=== PATIENT | male | born 1945 | race Caucasian/White ===

== ENCOUNTER 2016-06-11 10:58 | Outpatient (CLI) | payer MEDICARE, OTHER | END 2016-06-11 10:59 | disposition home or self-care (01) | DX: I25.10 Atherosclerotic heart disease of native coronary artery without angina pectoris (principal); E11.9 Type 2 diabetes mellitus without complications; Z79.899 Other long term (current) drug therapy; J18.9 Pneumonia, unspecified organism ==

== ENCOUNTER 2016-11-17 13:57 | Outpatient (CLI) | payer OTHER, MEDICARE | END 2016-11-17 13:58 | disposition critical access hospital (66) | LOC: EMS 13:57 | PROVIDERS: ATTEND Surgery | DX: R07.9 Chest pain, unspecified (principal); V59.40XA Driver of pick-up truck or van injured in collision with unspecified motor vehicles in traffic accident, initial encounter; Y92.410 Unspecified street and highway as the place of occurrence of the external cause | CPT/HCPCS: A0425; A0427 ==

== ENCOUNTER 2016-11-17 14:20 | Emergency (ER) | payer OTHER, MEDICARE ==
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
--- NOTE | 2016-11-17 16:15 | XRAY Preliminary Report ---
Exam: XR Cervical Spine 2 View IMPRESSION: 1. No acute bony abnormalities identified. 2. Anterior fusion, C4-C6, and posterior fusion, C2-T1, with chronic fracture of the right pedicle sc rew at T1. [facility] SITE ID: [id number]
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
[2016-11-17 16:32] VITALS: BP 123/84
== END 2016-11-17 16:45 | disposition home or self-care (01) ==
LOC: MERGE 14:20 → ED 14:20
DX: S16.1XXA Strain of muscle, fascia and tendon at neck level, initial encounter (principal); V53.5XXA Driver of pick-up truck or van injured in collision with car, pick-up truck or van in traffic accident, initial encounter; Y92.488 Other paved roadways as the place of occurrence of the external cause; Z98.1 Arthrodesis status; I45.2 Bifascicular block; R94.31 Abnormal electrocardiogram [ECG] [EKG]; I10 Essential (primary) hypertension; E78.00 Pure hypercholesterolemia, unspecified; E11.9 Type 2 diabetes mellitus without complications; Z79.4 Long term (current) use of insulin; Z79.84 Long term (current) use of oral hypoglycemic drugs
CPT/HCPCS: 72040; 93005; 99283; 99284

== ENCOUNTER 2016-11-30 20:11 | Emergency (ER) | payer OTHER, MEDICARE ==
[2016-11-30] MEDS ORDERED: LORazepam 2 MG/ML SYRINGE IVP STA (23:07)
[2016-11-30] MEDS ORDERED: LORazepam 2 MG/ML SYRINGE ONE (23:09)
[2016-11-30] MEDS ORDERED: IOPAMIDOL-300 100 ML VIAL IVP ONE (23:20)
== END 2016-12-01 01:08 | disposition home or self-care (01) ==
DX: E11.65 Type 2 diabetes mellitus with hyperglycemia (principal); R07.9 Chest pain, unspecified; I25.2 Old myocardial infarction; I25.10 Atherosclerotic heart disease of native coronary artery without angina pectoris; I45.2 Bifascicular block; I10 Essential (primary) hypertension; Z79.4 Long term (current) use of insulin; Z95.5 Presence of coronary angioplasty implant and graft
CPT/HCPCS: 36415; 71260; 80048; 84484; 85025; 93005; 96374; 99283; 99284; J2060; Q9967

== ENCOUNTER 2016-12-12 09:39 | Outpatient (CLI) | payer MEDICARE, OTHER ==
--- NOTE | 2016-12-12 18:48 | CT Report ---
EXAM: CT SOFT TISSUE NECK WITHOUT CONTRAST EXAM DATE: 12/12/2016 10:45 AM. HISTORY: 71-year-old man with neck mass (location unspecified) and costochondritis. COMPARISONS: None. TECHNIQUE: Routine soft tissue neck CT protocol. IV contrast: None. Reconstructions: Coronal and sagi ttal. In accordance with CT protocol optimization, one or more of the following dose reduction techniques w ere utilized for this exam: automated exposure control, adjustment of mA and/or KV based on patient s ize, or use of iterative reconstructive technique. FINDINGS: Visualized Intracranial Contents: Unremarkable. Orbits: Unremarkable. Sinuses: Mucosal thickening is present throughout the Patty the paranasal sinuses. Hyperdense contents are present in the maxillary sinuses bilaterally, likely inspissated secretions. Pharynx and Oral Cavity: Streak artifact from posterior fusion hardware and dental amalgam partially limited evaluation. Visualized parapharyngeal and retropharyngeal spaces are symmetric without mass l esion. Base of tongue and floor of mouth are symmetric without mass lesion. Pharyngeal airway is wide ly patent. Larynx: Symmetric without mass lesion. True vocal cords are symmetric. Airway is widely patent. Parotid and Submandibular Glands: Normal. Lymph Nodes and Soft Tissues: No cervical or supraclavicular lymphadenopathy is present. Soft tissues are unremarkable except for a patchy area of scattered density in the fat of the left posterior neck triangle (image 54, series 6, most likely reflecting local inflammatory reaction. This measures appr oximately 3.2 x 1.8 cm in maximum axial dimensions, but margins are ill-defined. Otherwise, no mass l esion or abnormal enhancement. Thyroid: Normal. Lung Apices: Clear. Bones: No acute fracture or malalignment. Status post posterior fusion of C2-T1 and anterior fusion o f C4-C6. There is also been posterior decompression with laminectomies at C4 and C6. IMPRESSION: 1. Small region of scattered density in the left neck posterior triangle subcutaneous fat, most consi stent with local inflammatory reaction/edema. Otherwise, no evidence of mass lesion in the neck soft tissues. 2. Status post posterior cervical fusion of C2-T1 and anterior fusion of C4-C6 as well as posterior d ecompression with laminectomies at C4 and C6. 3. Sinusitis, likely chronic. [facility] Referring Provider Line: [phone] SITE ID: [id number]
== END 2016-12-12 09:40 | disposition home or self-care (01) ==
LOC: DI 09:39
PROVIDERS: ATTEND Family Medicine
DX: R22.1 Localized swelling, mass and lump, neck (principal); Z98.1 Arthrodesis status; J32.9 Chronic sinusitis, unspecified
CPT/HCPCS: 70490

== ENCOUNTER 2017-02-14 11:41 | Emergency (ER) | payer MEDICARE, OTHER ==
[2017-02-14 11:51] VITALS: BP 118/76
--- NOTE | 2017-02-14 13:09 | XRAY Preliminary Report ---
Exam: XR Knee 4 View RT IMPRESSION: 1. Prepatellar soft tissue swelling. 2. Incidental chondrocalcinosis. [facility] SITE ID: [id number]
--- NOTE | 2017-02-14 13:12 | XRAY Report ---
EXAM: RIGHT KNEE RADIOGRAPHY EXAM DATE: 02/14/2017 12:31 PM. CLINICAL HISTORY: Injury. COMPARISON: None. TECHNIQUE: 5 views. FINDINGS: Bones: Normal. No fractures or bone lesions. Joints: There is chondrocalcinosis. No significant effusion. No subluxations. Soft Tissues: There is prepatellar soft tissue swelling. Atherosclerotic vascular calcifications are present. IMPRESSION: 1. Prepatellar soft tissue swelling. 2. Incidental chondrocalcinosis. [facility] Referring Provider Line: [phone] SITE ID: [id number]
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
[2017-02-14] MEDS ORDERED: NAPROXEN 250 MG TABLET PO STA (14:08)
[2017-02-14] MEDS ORDERED: CEPHALEXIN 250 MG CAPSULE PO STA (14:08)
[2017-02-14] MEDS ORDERED: TETANUS/DIPHTHERIA/PERTUSSIS 0.5 ML SYRINGE IM ONE ×2 (14:08→14:17)
[2017-02-14] MEDS ORDERED: DEXAMETHASONE 10 MG/ML VIAL PO STA (14:09)
[2017-02-14] MEDS ORDERED: NAPROXEN 250 MG TABLET PO ONE (14:16)
[2017-02-14] MEDS ORDERED: DEXAMETHASONE 10 MG/ML VIAL ONE (14:17)
[2017-02-14] MEDS ORDERED: CEPHALEXIN 250 MG CAPSULE PO ONE (14:17)
== END 2017-02-14 14:25 | disposition home or self-care (01) ==
LOC: ED 11:41
DX: M70.41 Prepatellar bursitis, right knee (principal); S81.031A Puncture wound without foreign body, right knee, initial encounter; W45.0XXA Nail entering through skin, initial encounter; W22.8XXA Striking against or struck by other objects, initial encounter; Z23 Encounter for immunization; I10 Essential (primary) hypertension; E11.9 Type 2 diabetes mellitus without complications; Z79.4 Long term (current) use of insulin; I48.91 Unspecified atrial fibrillation; Z79.02 Long term (current) use of antithrombotics/antiplatelets
CPT/HCPCS: 73564; 90471; 90715; 99283; A9270

== ENCOUNTER 2017-06-08 14:17 | Emergency (ER) | payer MEDICARE, OTHER ==
[2017-06-08 17:18] LABS: BASOPHILS % (AUTO) 0.5 %; EOSINOPHILS # (AUTO) 0.2 10^3/uL (0.0-0.7); EOSINOPHILS % (AUTO) 3.2 %; HGB - HEMOGLOBIN 12.4 g/dL (14.0-18.0); LYMPHOCYTES # (AUTO) 1.6 10^3/uL (1.5-3.5); LYMPHOCYTES % (AUTO) 26.7 %; MEAN CORPUSCULAR HEMOGLOBIN 28.6 pg (27.0-31.0); MEAN CORPUSCULAR HGB CONC 32.4 g/dL (32.0-36.0); MEAN CORPUSCULAR VOLUME 88.2 fL (80.0-94.0); MEAN PLATELET VOLUME 8.3 fL (7.4-11.4); MONOCYTES # (AUTO) 0.4 10^3/uL (0.0-1.0); MONOCYTES % (AUTO) 5.8 %; NEUTROPHILS # (AUTO) 3.9 10^3/uL (1.5-6.6); NEUTROPHILS % (AUTO) 63.8 %; PLT - PLATELET COUNT 284 10^3/uL (130-450); RED BLOOD COUNT 4.32 10^6/uL (4.70-6.10); RED CELL DISTRIBUTION WIDTH 13.9 % (12.0-15.0); WHITE BLOOD COUNT 6.1 x10^3/uL (4.8-10.8)
[2017-06-08 17:32] LABS: ALBUMIN/GLOBULIN RATIO 1.2 (1.0-2.2); BILIRUBIN,TOTAL 0.3 mg/dL (0.2-1.0); CALCIUM 9.1 mg/dL (8.5-10.3); CREATININE 1.1 mg/dL (0.6-1.2); TOTAL PROTEIN 7.3 g/dL (6.7-8.2)
[2017-06-08] MEDS ORDERED: IOPAMIDOL-300 100 ML VIAL ONE (17:59)
[2017-06-08] MEDS ORDERED: IOPAMIDOL-300 100 ML VIAL IVP ONE (18:27)
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
--- NOTE | 2017-06-08 19:11 | CT Preliminary Report ---
Exam: CT ABDOMEN/PELVIS W/ IMPRESSION: 1. No posttraumatic abnormality. 2. No recurrent bowel obstruction. 3. Colonic diverticulosis. 4. Right renal lithiasis. No obstructive uropathy. 5. Normal appendix. [facility] SITE ID: [id number]
--- NOTE | 2017-06-08 19:23 | CT Report ---
EXAM: CT ABDOMEN AND PELVIS EXAM DATE: 06/08/2017 06:27 PM. CLINICAL HISTORY: May 26 with persistent right upper quadrant pain. COMPARISONS: 02/29/2016. TECHNIQUE: Routine helical CT imaging was performed through the abdomen and pelvis. IV contrast: ISOV UE 300 100 mL. Enteric contrast: Yes. Reconstructions: Coronal and sagittal. In accordance with CT protocol optimization, one or more of the following dose reduction techniques w ere utilized for this exam: automated exposure control, adjustment of mA and/or KV based on patient s ize, or use of iterative reconstructive technique. FINDINGS: Lung Bases: Unremarkable. Liver: Fatty infiltration. Gallbladder/Bile Ducts: Unremarkable. Spleen: Calcified granulomata. Pancreas: Normal. Adrenal Glands: Normal. Kidneys: 4 x 8 mm stone superior right renal calyx. 3 cm cyst inferior pole right kidney. No hydronep hrosis. Left kidney unremarkable. Peritoneal Cavity/Bowel: Diverticuli off the colon. At this time, small bowel is of normal caliber. Colon is of normal caliber. No excessive stool. No free fluid, free air nor adenopathy. The appendix is well visualized and normal. Pelvic Organs: Normal. The bladder and visualized pelvic organs are within normal limits. Vasculature: No aneurysms or other significant abnormality. Bones: No significant abnormality. No acute bony abnormality. Other: None. IMPRESSION: 1. No posttraumatic abnormality. 2. No recurrent bowel obstruction. 3. Colonic diverticulosis. 4. Right renal lithiasis. No obstructive uropathy. 5. Normal appendix. [facility] Referring Provider Line: [phone] SITE ID: [id number]
[2017-06-08] MEDS ORDERED: KETOROLAC 60 MG/2 ML VIAL IVP STA (19:28)
[2017-06-08 20:10] VITALS: BP 126/80
== END 2017-06-08 20:10 | disposition home or self-care (01) ==
LOC: ED 14:17
DX: R10.11 Right upper quadrant pain (principal); Z91.81 History of falling; E78.00 Pure hypercholesterolemia, unspecified; I25.10 Atherosclerotic heart disease of native coronary artery without angina pectoris; I25.2 Old myocardial infarction; E11.9 Type 2 diabetes mellitus without complications; I10 Essential (primary) hypertension; Z79.4 Long term (current) use of insulin; Z95.5 Presence of coronary angioplasty implant and graft
CPT/HCPCS: 36415; 74177; 80053; 83690; 85025; 96374; 99284; Q9967

== ENCOUNTER 2017-11-10 07:37 | Emergency (ER) | payer MEDICARE, OTHER ==
[2017-11-10] MEDS ORDERED: DEXAMETHASONE 10 MG/ML VIAL IVP STA (09:22)
[2017-11-10] MEDS ORDERED: KETOROLAC 60 MG/2 ML VIAL IVP STA (09:22)
--- NOTE | 2017-11-10 09:31 | ED Physician Documentation ---
PD HPI Fall - Stated complaint Stated Complaint: BACK PX/GLF - Chief complaint Chief Complaint: Trauma Ch/Bk - History obtained from History obtained from: Patient - History of Present Illness Mechanism of injury: Slipped Fall distance: 10 to 15ft Where injury occurred: Home Timing - onset: How many days ago (2) Injury(ies) location: Head, Chest, Back Quality of pain: Pain Associated symptoms: LOC. No: Seizures, Ear drainage, Nasal drainage, Neck pain , Weakness, Paresthesias, Dyspnea, Nausea / vomiting Symptoms improve with: Rest Worsens with: Movement, Palpation Contributing factors: Anticoagulated (on Plavix) Similar symptoms before: Has not had sx before Recently seen: Not recently seen - Additional information Additional information: 72-year-old male with history of chronic pain and secondary to spinal stenosis and cervical fusion and who is on plavix after multiple stent placement, has fallen off of his trailer. He was on top of a trailer cleaning it went to climb off a ladder slipped and fell onto his back and right side. He is complaining of pain in the right lower ribs and pain in his lumbar spine as well as his thoracic spine. He has pain when he tries to get up and move around. He is taking his pain medications and they are not adequate. Review of Systems Constitutional: denies: Fever Eyes: denies: Decreased vision Ears: denies: Ear pain Nose: denies: Congestion Throat: denies: Sore throat Cardiac: reports: Chest pain / pressure Respiratory: reports: Dyspnea. denies: Cough, Wheezing GI: denies: Abdominal Pain, Nausea, Vomiting : denies: Dysuria, Frequency Skin: denies: Rash Musculoskeletal: reports: Neck pain, Back pain. denies: Extremity pain PD PAST MEDICAL HISTORY - Past Medical History Cardiovascular: High cholesterol, Atrial fibrillation, [place], Coronary artery disease, Hypertension Endocrine/Autoimmune: Type 2 diabetes GI: Diverticulitis, Colon polyps HEENT: Chronic vision loss Psych: Depression, Anxiety Musculoskeletal: Gout, Chronic back pain - Past Surgical History Past Surgical History: Yes General: Colonoscopy, Other Ortho: Spine surgery Cardiovascular: Coronary stent - Present Medications Home Medications: Ambulatory Orders Medication Instructions Recorded Confirmed Atenolol 25 mg PO BID 09/09/14 06/08/17 Clopidogrel Bisulfate [Plavix] 75 mg PO DAILY 09/09/14 06/08/17 Insulin Glargine,Hum.rec.anlog 60 unit SQ DAILY 09/09/14 06/08/17 [Lantus] metFORMIN [Glucophage] 850 mg PO TID 09/09/14 06/08/17 Albuterol Sulfate [Albuterol 2 puffs IH Q4HR PRN #1 hfa.aer.ad 09/12/14 06/08/17 Sulfate Hfa] Colchicine 0.6 mg PO DAILY 09/12/14 06/08/17 Fluoxetine HCl 20 mg PO DAILY 09/12/14 06/08/17 Gabapentin mg PO TID 09/12/14 06/08/17 Isosorbide Mononitrate ER [Imdur] 30 mg PO DAILY 09/12/14 06/08/17 Prazosin HCl 6 mg PO DAILY 09/12/14 06/08/17 Propranolol HCl 20 mg PO TID 09/12/14 06/08/17 buPROPion HCl [Bupropion HCl] 150 mg PO BID 09/12/14 06/08/17 Dipyridamole [Persantine] 50 mg PO BID 10/14/14 06/08/17 Doxepin [SINEquan] 10 mg PO QPM 10/14/14 06/08/17 Morphine Sulfate [Ms Contin] 30 mg PO DAILY PM 10/14/14 06/08/17 Nitroglycerin 0.4 mg SL ONCE 10/14/14 06/08/17 Pregabalin [Lyrica] 100 mg PO TID 10/14/14 06/08/17 Gemfibrozil 600 mg PO BID 11/17/16 06/08/17 Glipizide 10 mg PO BID 11/17/16 06/08/17 Saxagliptin HCl/Metformin HCl 1 tab PO DAILY 11/17/16 06/08/17 [Kombiglyze Xr 2.5-1,000 mg Tab] Naproxen [Naprosyn] 500 mg PO BID PRN #15 tablet 02/14/17 06/08/17 Naproxen 375 mg PO BID #20 tablet 06/08/17 Oxycodone HCl 5 mg PO BID 06/08/17 06/08/17 oxyCODONE/ACET 5/325 [Percocet 5 1 - 2 each PO Q4-6H PRN #20 tablet 11/10/17 mg/325 mg] - Allergies Allergies/Adverse Reactions: Allergies Allergy/AdvReac Type Severity Reaction Status Date / Time aspirin Allergy Rash Verified 11/30/16 20:24 peanut Allergy Edema Verified 11/30/16 20:24 - Social History Does the pt smoke?: No Smoking Status: Never smoker Does the pt drink ETOH?: No Does the pt have substance abuse?: No - Immunizations Immunizations are current?: Yes - POLST Patient has POLST: No PD ED PE NORMAL - Vitals Vital signs reviewed: Yes (diastolic hypertension ) - General General: Alert and oriented X 3, No acute distress, Well developed/nourished - HEENT HEENT: Atraumatic, PERRL, EOMI - Neck Neck: Supple, no meningeal sign, Other (There is a deep scar to the posterior neck consistent with the cervical fusion and there is minimal tenderness there.) - Cardiac Cardiac: RRR, No murmur - Respiratory Respiratory: No respiratory distress, Clear bilaterally, Other (There is bruising and tenderness to the lateral rib cage inferiorly with specific rib tenderness and not abdominal tenderness. ) - Abdomen Abdomen: Soft, Non tender - Back Back: No CVA TTP, Other (There is midline tenderness to the lower lumbar spine and the thoracic spine) - Derm Derm: Normal color, Warm and dry, No rash - Extremities Extremities: No deformity, No edema - Neuro Neuro: No motor deficit, No sensory deficit Eye Opening: Spontaneous Motor: Obeys Commands Verbal: Oriented GCS Score: 15 - Psych Psych: Normal mood, Normal affect Results - Vitals Vitals: Vital Signs - 24 hr 11/10/17 11/10/17 11/10/17 08:07 11:51 14:28 Temperature 36.6 C 36.4 C L Heart Rate 79 78 76 Respiratory 20 14 12 Rate Blood Pressure 101/89 H 113/66 111/77 O2 Saturation 95 97 96 Oxygen O2 Source Room air - Labs Labs: Laboratory Tests 11/10/17 11/10/17 11/10/17 09:30 09:30 09:30 WBC 7.5 RBC 3.99 L Hgb 12.0 L Hct 36.2 L MCV 90.9 MCH 30.0 MCHC 33.0 RDW 14.8 Plt Count 225 MPV 8.3 Neut # (Auto) 5.3 Lymph # (Auto) 1.3 L [place] # (Auto) 0.5 Eos # (Auto) 0.4 Baso # (Auto) 0.0 Absolute Nucleated RBC 0.00 Nucleated RBC % 0.0 Sodium 133 L Potassium 4.7 Chloride 98 L Carbon Dioxide 27 Anion Gap 8.0 BUN 20 Creatinine 1.1 Estimated GFR (MDRD) 66 L Glucose 194 H Calcium 9.1 Total Bilirubin 0.8 AST 17 ALT 12 Alkaline Phosphatase 86 Troponin I < 0.04 Total Protein 7.9 Albumin 3.8 Globulin 4.1 Albumin/Globulin Ratio 0.9 L Lipase 28 - Rads (name of study) cervical spine Radiology: Prelim report reviewed (Impression: No acute fracture or subluxation in the cervical spine.), EMP read indepedently, See rad report lumbar spine Radiology: Prelim report reviewed (Impression: No acute fracture or subluxation in the lumbar spine.), EMP read indepedently, See rad report CT head Radiology: Prelim report reviewed (Impression: 1. Generalized age-related cortical atrophic changes without evidence of acute intracranial abnormality. 2 Extra-axial nodule as described above may be vascular in origin, such as a cerebral artery aneurysm. differential includes a neoplasm or complex cyst. Recommend CTA or MRI MRA for further evaluation.), EMP read indepedently, See rad report CT chest with Radiology: Prelim report reviewed (Impression: 1. Mild superior endplate compression fracture of the T12 vertebral body is likely acute.2 Mild superior endplate compression fracture of T4 vertebral body is technically age- indeterminate but likely chronic.3 No pulmonary contusion or pneumothorax. 4 Mild aneurysmal dilation of the ascending aorta, slightly increased compared to November 2016.), EMP read indepedently, See rad report CT angio head Radiology: Prelim report reviewed (Impression: 1. 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 The aneurysm has a wide neck, measuring about 6.3 mm. The dome measures about 7 mm in diameter and the aneurysm measures about 6.2 mm in length.2 No other intracranial aneurysm is demonstrated.3 there is circumferential atherosclerotic plaque in the proximal V4 segment left vertebral artery. This probably gives rise to about 50% stenosis. There is minor calcified plaque in the carotid siphons without significant associated stenosis. No hemodynamically significant stenosis are identified affecting main branches of the anterior or posterior circulations. Postcontrast head CT: no enhancing space-occupying mass lesion is demonstrated.) , EMP read indepedently, See rad report Procedures - FAST exam (time) 8296 FAST exam: No: Free fluid RUQ, Free fluid LUQ, Free fluid suprapubic, Pericardial effusion PD MEDICAL DECISION MAKING - ED course Complexity details: reviewed results, re-evaluated patient, considered differential, d/w patient, d/w family ED course: 72-year-old male with a 12 foot fall does not appear to be in distress when he arrived to the emergency department he moves slowly because of pain in the right lower ribs and his lower lumbar spine. He has a prior cervical spine fusion he also has hit his head and relates a history of loss of consciousness. He does not have any postconcussive symptoms and is not currently having a headache or trouble concentrating or nausea or vomiting. Initial fast examination is negative and imaging procedures of the spine and chest are obtained. Imaging procedures indicate a new thoracic spine compression fracture and no rib fracture or pneumothorax. There is not a lumbar compression fracture in the cervical spine is well. CT of the head revealed an unusual mass this was followed up as recommended by the radiologist with a CT angios of the head which demonstrates presence of an aneurysm. He will have follow-up with the aneurysm through his primary care doctor to a neurosurgeon. He is requesting additional pain medication and I have indicated to him that it is important for him to contact his pain management doctor about the need for further pain medication. He will need more than normal amount of pain medication especially over the next 2 weeks and as long as 6-8 weeks. - Sepsis Event Vital Signs: Vital Signs - 24 hr 11/10/17 11/10/17 11/10/17 08:07 11:51 14:28 Temperature 36.6 C 36.4 C L Heart Rate 79 78 76 Respiratory 20 14 12 Rate Blood Pressure 101/89 H 113/66 111/77 O2 Saturation 95 97 96 Oxygen O2 Source Room air Departure - Departure Disposition: 01 Home, Self Care Clinical Impression: Cerebral aneurysm without rupture Thoracic compression fracture Qualifiers: Encounter type: initial encounter Fracture type: closed Qualified Code(s): S22.000A - Wedge compression fracture of unspecified thoracic vertebra, initial encounter for closed fracture Contusion, chest wall Qualifiers: Encounter type: initial encounter Laterality: right Qualified Code(s): S20.211A - Contusion of right front wall of thorax, initial encounter Condition: Stable Instructions: Aneurysm Brain, ED Fx Comp Vertebral, ED Contusion Chest Wall, ED Contusion Vs Minor Fx Rib Follow-Up: Smooth Espino MD [Primary Care Provider] - Prescriptions: oxyCODONE/ACET 5/325 [Percocet 5 mg/325 mg] 1 - 2 each PO Q4-6H PRN #20 tablet PRN Reason: Pain Discharge Date/Time: 11/10/17 14:34
[2017-11-10 09:40] LABS: BASOPHILS % (AUTO) 0.4 %; EOSINOPHILS # (AUTO) 0.4 10^3/uL (0.0-0.7); EOSINOPHILS % (AUTO) 5.1 %; LYMPHOCYTES # (AUTO) 1.3 10^3/uL (1.5-3.5); LYMPHOCYTES % (AUTO) 17.8 %; MEAN CORPUSCULAR VOLUME 90.9 fL (80.0-94.0); MEAN PLATELET VOLUME 8.3 fL (7.4-11.4); MONOCYTES # (AUTO) 0.5 10^3/uL (0.0-1.0); MONOCYTES % (AUTO) 6.3 %; NEUTROPHILS # (AUTO) 5.3 10^3/uL (1.5-6.6); NEUTROPHILS % (AUTO) 70.4 %; PLT - PLATELET COUNT 225 10^3/uL (130-450); RED BLOOD COUNT 3.99 10^6/uL (4.70-6.10); RED CELL DISTRIBUTION WIDTH 14.8 % (12.0-15.0); WHITE BLOOD COUNT 7.5 x10^3/uL (4.8-10.8)
[2017-11-10 09:52] LABS: ALBUMIN 3.8 g/dL (3.2-5.5); ALBUMIN/GLOBULIN RATIO 0.9 (1.0-2.2); BILIRUBIN,TOTAL 0.8 mg/dL (0.2-1.0); CALCIUM 9.1 mg/dL (8.5-10.3); CREATININE 1.1 mg/dL (0.6-1.2); TOTAL PROTEIN 7.9 g/dL (6.7-8.2)
[2017-11-10] MEDS ORDERED: IOPAMIDOL-300 100 ML VIAL ONE ×2 (10:06→11:36)
[2017-11-10] MEDS ORDERED: IOPAMIDOL-300 100 ML VIAL IVP ONE (10:26)
--- NOTE | 2017-11-10 10:51 | CT Report ---
Procedure Date: 11/10/2017 Accession Number: [id number] / [id number] Procedure: CT - Head W/O CPT Code: FULL RESULT: EXAM: CT HEAD EXAM DATE: 11/10/2017 10:24 AM. CLINICAL HISTORY: Fall from 12 ft + LOC. COMPARISON: Noncontrast CT soft tissue neck 12/12/2016. TECHNIQUE: Multiaxial CT images were obtained from the foramen magnum to the vertex. Reformats: Coronal. IV contrast: None. In accordance with CT protocol optimization, one or more of the following dose reduction techniques were utilized for this exam: automated exposure control, adjustment of mA and/or KV based on patient size, or use of iterative reconstructive technique. FINDINGS: Parenchyma: No intraparenchymal hemorrhage. No midline shift or CT findings of acute infarction. [place]-white differentiation is distinct. Diffuse chronic microangiopathic white matter changes are evident. Extraaxial Spaces: Normal for age. No subdural or epidural collections identified. Ovoid nodule measuring 8 x 8 x 10 mm appears to be within the subarachnoid space, anterior to the third ventricle (axial image 14 and coronal image 14). This appears to have increased in size compared to November 2016. Ventricles: The ventricles and cortical sulci are enlarged, consistent with age-related tissue loss. Sinuses and orbits: Moderate bilateral maxillary sinus disease is similar to prior. The mastoid air cells are clear. Bones: No evidence of fracture or calvarial defect. Other: None. IMPRESSION: 1. Generalized age-related cortical atrophic changes without evidence of acute intracranial abnormality. 2. Extra-axial nodule as described above may be vascular in origin, such as a cerebral artery aneurysm. Differential includes a neoplasm or complex cyst. Recommend CTA or MRI/MRA for further evaluation. [facility] The above findings were discussed with Dr. [place] by Dr. Jeremie Chau at 10:50 hrs on 11/10/17.
--- NOTE | 2017-11-10 11:12 | CT Report ---
Procedure Date: 11/10/2017 Accession Number: [id number] / [id number] Procedure: CT - Chest W/ CPT Code: FULL RESULT: EXAM: CT CHEST EXAM DATE: 11/10/2017 10:24 AM. CLINICAL HISTORY: Fall from 12 feet pain right lateral chest wall. COMPARISONS: 11/30/2016. TECHNIQUE: Routine helical CT imaging was performed through the chest. IV contrast: 80 cc Isovue 300. Reconstructions: Coronal and sagittal. In accordance with CT protocol optimization, one or more of the following dose reduction techniques were utilized for this exam: automated exposure control, adjustment of mA and/or KV based on patient size, or use of iterative reconstructive technique. FINDINGS: Lungs/Pleura: Mild respiratory motion artifact superiorly, but no suspicious pulmonary nodule demonstrated. Scattered tiny calcified granulomas. No consolidation or edema. No pneumothorax or pleural effusion. Mediastinum: Borderline cardiomegaly. No pericardial effusion. No mediastinal hematoma or lymphadenopathy. Ectatic ascending thoracic aorta measures 4.3 cm in maximal diameter (previously 4.1 cm). Mild atherosclerotic calcifications. Coronary artery disease. Bones: Superior endplate compression deformity with approximately 25% loss of height and associated sclerosis at T4, new from prior. Mild superior endplate compression deformity with approximately 25% loss of height at the T12 vertebral body, new from prior. No other fracture. Visualized Abdomen: Nonobstructing right nephrolithiasis. Calcified granulomas in the spleen. Reflux of contrast into the IVC. Probable hepatic steatosis. Other: None. IMPRESSION: 1. Mild superior endplate compression fracture of the T12 vertebral body is likely acute. 2. Mild superior endplate compression fracture of the T4 vertebral body is technically age indeterminate but likely chronic. 3. No pulmonary contusion or pneumothorax. 4. Mild aneurysmal dilatation of the ascending aorta, slightly increased compared to November 2016. [facility]
--- NOTE | 2017-11-10 11:18 | CT Report ---
Procedure Date: 11/10/2017 Accession Number: [id number] / [id number] Procedure: CT - Cervical Spine W/O CPT Code: FULL RESULT: EXAM: CT CERVICAL SPINE WITHOUT CONTRAST DATE: 11/10/2017 10:24 AM. HISTORY: Fall from 12 ft spine pain. COMPARISONS: CT soft tissue neck without contrast 12/12/2016. TECHNIQUE: Thin-section axial images were acquired of the cervical spine without contrast. Post-processing: Coronal and sagittal reformats. Other: None. In accordance with CT protocol optimization, one or more of the following dose reduction techniques were utilized for this exam: automated exposure control, adjustment of mA and/or KV based on patient size, or use of iterative reconstructive technique. FINDINGS: Alignment: No scoliosis or spondylolisthesis. Bones: No acute fracture. Status post anterior fusion C4-C6 and posterior fusion C2-T1 and multilevel laminectomies; stable position of the hardware without evidence of loosening or failure. Interspace Levels/Facets: Bony fusion at C4-C5 and C5-C6 as before. Multilevel decreased disk height and facet arthropathy. Other: No prevertebral soft tissue thickening. IMPRESSION: No acute fracture or subluxation in the cervical spine. [facility]
--- NOTE | 2017-11-10 11:20 | XRAY Report ---
Procedure Date: 11/10/2017 Accession Number: [id number] / [id number] Procedure: XR - Lumbar Spine 2 View CPT Code: FULL RESULT: EXAM: LUMBOSACRAL SPINE RADIOGRAPHY EXAM DATE: 11/10/2017 10:32 AM. CLINICAL HISTORY: Fall from 12 ft lower lumbar pain. COMPARISONS: CT abdomen pelvis 06/08/2017. TECHNIQUE: 3 views. FINDINGS: Alignment: Grade 1 retrolisthesis of L5 on S1 is similar to prior and likely degenerative. No other spondylolisthesis. No significant lateral curvature. Bones: Five dkg-fea-yqhzmig lumbar vertebral bodies are present. No fractures or bone lesions. Disks: Mild to moderate decreased disk height L4-L5 and L5-S1. Facets: Moderate facet arthropathy L4-L5 and L5-S1. Sacroiliac Joints: Unremarkable. Soft Tissues: Vascular calcifications. IMPRESSION: No acute fracture or subluxation in the lumbar spine. [facility]
--- NOTE | 2017-11-10 12:38 | CT Report ---
Procedure Date: 11/10/2017 Accession Number: [id number] / [id number] Procedure: CT - Head Angio CPT Code: FULL RESULT: CT ANGIOGRAM HEAD AND POSTCONTRAST HEAD CT INDICATION: 72-year-old male, status post fall from [address] performed this a. m. demonstrates a probable anterior communicating artery aneurysm. CT angiography was recommended in further evaluation. TECHNIQUE: 80 mL of Isovue-300 contrast were injected at a rapid rate through a large bore, antecubital intravenous catheter. The head was scanned helically during arterial phase. Data was reconstructed into 5 mm axial images. In addition, MIP reconstructions have been generated in multiple projections to allow better assessment of the intracranial arteries. Postcontrast head CT: Sequential 5 mm axial images were obtained through the brain following the CT angiogram. In accordance with CT protocol optimization, one or more of the following dose reduction techniques were utilized for this exam: automated exposure control, adjustment of mA and/or KV based on patient size, or use of iterative reconstructive technique. COMPARISON: Unenhanced head CT 11/10/2017. FINDINGS: CT angiogram head: There is calcified plaque, scattered throughout the carotid siphons bilaterally without significant associated ICA stenosis. No ICA aneurysm is identified. The A1 segment of the left anterior cerebral artery is developmentally absent. There is a robust, right A1 segment. An anterior communicating artery is demonstrated. A wide-necked, saccular aneurysm is identified, arising from the anterior wall of the right side of the anterior communicating artery, at its junction with the right anterior cerebral artery. The neck appears to measure about 6.3 mm. The aneurysm measures about 6.2 mm in length and the dome measures about 7 mm in width. The aneurysm projects anteriorly and slightly to the left. There appears to be good filling of the A2 and distal LUIS [place]UARDO branches bilaterally. No aneurysms are identified elsewhere, in the [place]O circulations. The middle cerebral arteries are unremarkable. No aneurysm is demonstrated and there is no evidence of occlusion or hemodynamically significant stenosis affecting main branches of either MCA. Posterior circulation: There is calcified plaque in the proximal V4 segments of both vertebral arteries. No significant associated stenosis in the right vertebral artery. There is near circumferential plaque in proximal left vertebral artery. There appears be at least 50% stenosis. The right PICA is widely patent. No left PICA is identified. The left PICA territory is probably supplied by the contralateral PICA or ipsilateral AICA (normal anatomical variants). The basilar artery is tortuous, elongated and mildly ectatic. It measures up to about 4 mm diameter. There is a high riding basilar terminus. No basilar apex aneurysm is demonstrated. The basilar artery, superior cerebellar arteries and posterior cerebral arteries appear widely patent throughout. A small to moderate-sized left posterior communicating artery is demonstrated. No definite right posterior communicator is seen. Postcontrast head CT: No enhancing space-occupying mass lesion is demonstrated. There is normal intravascular contrast enhancement in the dural venous sinuses and deep venous structures. IMPRESSION: CT angiogram head: 1. 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 The aneurysm has a wide neck, measuring about 6.3 mm. The dome measures about 7 mm in diameter and the aneurysm measures about 6.2 mm in length. 2. No other intracranial aneurysm is demonstrated. 3. There is circumferential atherosclerotic plaque in the proximal V4 segment left vertebral artery. This probably gives rise to about 50% stenosis. There is minor calcified plaque in the carotid siphons without significant associated stenosis. No hemodynamically significant stenoses are identified affecting main branches of the anterior or posterior circulations. Postcontrast head CT: No enhancing space-occupying mass lesion is demonstrated.
[2017-11-10 14:34] VITALS: BP 111/77
== END 2017-11-10 14:34 | disposition home or self-care (01) ==
LOC: ED 07:37
DX: I67.1 Cerebral aneurysm, nonruptured (principal); S22.000A Wedge compression fracture of unspecified thoracic vertebra, initial encounter for closed fracture; S20.211A Contusion of right front wall of thorax, initial encounter; W11.XXXA Fall on and from ladder, initial encounter; Y92.028 Other place in mobile home as the place of occurrence of the external cause; I48.91 Unspecified atrial fibrillation; I25.2 Old myocardial infarction; I25.10 Atherosclerotic heart disease of native coronary artery without angina pectoris; I10 Essential (primary) hypertension; E11.9 Type 2 diabetes mellitus without complications; M10.9 Gout, unspecified; Z86.010 Personal history of colon polyps; Z79.4 Long term (current) use of insulin; Z79.02 Long term (current) use of antithrombotics/antiplatelets
CPT/HCPCS: 36415; 70450; 70496; 71260; 72100; 72125; 80053; 83690; 84484; 85025; 96374; 96375; 99284; Q9967

== ENCOUNTER 2018-09-26 16:04 | Outpatient (CLI) | payer MEDICARE, OTHER ==
[2018-09-26] MEDS ORDERED: IOVERSOL 320 50 ML VIAL ONE (16:16)
[2018-09-26] MEDS ORDERED: IOVERSOL 320 100 ML VIAL IVP ONE ×2 (16:16→18:35)
[2018-09-26 16:24] LABS: BASOPHILS % (AUTO) 0.6 %; EOSINOPHILS # (AUTO) 0.3 10^3/uL (0.0-0.7); HGB - HEMOGLOBIN 13.1 g/dL (14.0-18.0); LYMPHOCYTES # (AUTO) 1.3 10^3/uL (1.5-3.5); LYMPHOCYTES % (AUTO) 26.3 %; MEAN CORPUSCULAR VOLUME 87.5 fL (80.0-94.0); MONOCYTES # (AUTO) 0.4 10^3/uL (0.0-1.0); NEUTROPHILS # (AUTO) 3.1 10^3/uL (1.5-6.6); NEUTROPHILS % (AUTO) 61.1 %; PLT - PLATELET COUNT 221 10^3/uL (130-450); RED BLOOD COUNT 4.67 10^6/uL (4.70-6.10); RED CELL DISTRIBUTION WIDTH 15.6 % (12.0-15.0); WHITE BLOOD COUNT 5.1 x10^3/uL (4.8-10.8)
[2018-09-26 16:35] LABS: ALBUMIN 4.3 g/dL (3.2-5.5); ALBUMIN/GLOBULIN RATIO 1.3 (1.0-2.2); BILIRUBIN,TOTAL 0.7 mg/dL (0.2-1.0); CALCIUM 9.5 mg/dL (8.5-10.3); CREATININE 1.1 mg/dL (0.6-1.2); TOTAL PROTEIN 7.5 g/dL (6.7-8.2)
--- NOTE | 2018-09-26 18:44 | CT Report ---
Reason: ABDOMINAL PAIN Procedure Date: 09/26/2018 Accession Number: [id number] / [id number] Procedure: CT - Abdomen/Pelvis W CPT Code: FULL RESULT: EXAM: CT ABDOMEN AND PELVIS EXAM DATE: 09/26/2018 05:32 PM. CLINICAL HISTORY: ABDOMINAL PAIN. COMPARISONS: ABDOMEN/PELVIS W/ 06/08/2017 6:19 PM. TECHNIQUE: Routine helical CT imaging was performed through the abdomen and pelvis. IV contrast: 100 cc Optiray 320. Enteric contrast: Yes. Reconstructions: Coronal and sagittal. In accordance with CT protocol optimization, one or more of the following dose reduction techniques were utilized for this exam: automated exposure control, adjustment of mA and/or KV based on patient size, or use of iterative reconstructive technique. FINDINGS: Lung Bases: Calcified granuloma in right base. Otherwise clear. No effusion or pneumothorax. Calcified mediastinal lymph nodes. Marked coronary artery calcification. Liver: Mild hypoattenuation of the liver parenchyma. Otherwise unremarkable. Gallbladder/Bile Ducts: Unremarkable. Spleen: Tiny calcified granulomata. Otherwise unremarkable. Pancreas: Normal. Adrenal Glands: Normal. Kidneys: Right upper pole nonobstructing stone measuring about 9 mm. Right renal cyst. Otherwise unremarkable. No hydronephrosis. Peritoneal Cavity/Bowel: Normal. No free fluid, free air or adenopathy. No masses or acute inflammatory process. The appendix is well visualized and normal. Pelvic Organs: Normal. The bladder and visualized pelvic organs are within normal limits. Vasculature: No aneurysms or other significant abnormality. Bones: Anterior compression fracture of T12 upper endplate not present on previous exam. Other: None. IMPRESSION: 1. Nonobstructing right upper pole renal stone measuring 9 mm. 2. Interval upper endplate compression fracture of T12. 3. Old granulomatous disease, fatty liver, and other chronic or incidental findings. [facility] The call report notification system was initiated by Dr. Yasmany Henderson at 06:38 PM on 09/26/2018. The above call report findings were discussed with Amber Smith by Dr. Yasmany Henderson at 06:43 PM on 09/26/2018.
[2018-09-26] MEDS ORDERED: IOVERSOL 320 50 ML VIAL PO ONE (19:03)
== END 2018-09-26 16:05 | disposition home or self-care (01) ==
LOC: DI 16:04
PROVIDERS: ATTEND Physician Assistant
DX: R10.9 Unspecified abdominal pain (principal); N20.0 Calculus of kidney; M48.54XA Collapsed vertebra, not elsewhere classified, thoracic region, initial encounter for fracture
CPT/HCPCS: 36415; 74177; 80053; 85025; Q9967

== ENCOUNTER 2019-01-31 08:00 | Outpatient (CLI) | payer MEDICARE, OTHER | END 2019-01-31 23:59 | disposition home or self-care (01) | LOC: LAB.WCP 08:00 | PROVIDERS: ATTEND Family Medicine | DX: Z53.9 Procedure and treatment not carried out, unspecified reason (principal) ==

== ENCOUNTER 2019-03-08 15:08 | Outpatient (CLI) | payer MEDICARE, OTHER ==
[2019-03-08 15:28] LABS: BASOPHILS % (AUTO) 0.7 %; EOSINOPHILS # (AUTO) 0.2 10^3/uL (0.0-0.7); EOSINOPHILS % (AUTO) 3.5 %; HGB - HEMOGLOBIN 11.5 g/dL (14.0-18.0); LYMPHOCYTES # (AUTO) 1.4 10^3/uL (1.5-3.5); LYMPHOCYTES % (AUTO) 23.4 %; MEAN CORPUSCULAR HEMOGLOBIN 27.9 pg (27.0-31.0); MEAN CORPUSCULAR HGB CONC 30.4 g/dL (32.0-36.0); MEAN CORPUSCULAR VOLUME 91.7 fL (80.0-94.0); MEAN PLATELET VOLUME 9.8 fL (7.4-11.4); MONOCYTES # (AUTO) 0.3 10^3/uL (0.0-1.0); MONOCYTES % (AUTO) 5.6 %; NEUTROPHILS # (AUTO) 4.1 10^3/uL (1.5-6.6); NEUTROPHILS % (AUTO) 66.5 %; PLT - PLATELET COUNT 209 10^3/uL (130-450); RED BLOOD COUNT 4.12 10^6/uL (4.70-6.10); RED CELL DISTRIBUTION WIDTH 14.5 % (12.0-15.0); WHITE BLOOD COUNT 6.1 x10^3/uL (4.8-10.8)
[2019-03-08 15:43] LABS: BUN - BLOOD UREA NITROGEN 19 mg/dL (6-20); CALCIUM 9.2 mg/dL (8.5-10.3); CARBON DIOXIDE - CO2 27 mmol/L (21-32); CHLORIDE 96 mmol/L (101-111); CHOL/HDL RATIO 3.6 (<5.0); CHOLESTEROL 120 mg/dL; CREATININE 0.9 mg/dL (0.6-1.2); GFR - MDRD 82 (>89); GLUCOSE 360 mg/dL (70-100); HDL CHOLESTEROL 33 mg/dL; LDL CHOLESTEROL,CALCULATED 55 mg/dL; LDL/HDL RATIO 1.7 (<3.6); SODIUM 135 mmol/L (135-145); VLDL CHOLESTEROL 32 mg/dL
== END 2019-03-08 15:09 | disposition home or self-care (01) ==
LOC: LAB 15:08
PROVIDERS: ATTEND Internal Medicine Cardiovascular Disease
DX: I25.10 Atherosclerotic heart disease of native coronary artery without angina pectoris (principal); D64.9 Anemia, unspecified; E78.5 Hyperlipidemia, unspecified
CPT/HCPCS: 36415; 80048; 80061; 83721; 85025

== ENCOUNTER 2019-03-22 14:11 | Outpatient (CLI) | payer MEDICARE, OTHER ==
--- NOTE | 2019-03-23 19:02 | XRAY Report ---
Reason: NECK PAIN Procedure Date: 03/22/2019 Accession Number: [id number] / [id number] Procedure: WCP - Cervical Spine 2 View CPT Code: FULL RESULT: EXAM: CERVICAL SPINE RADIOGRAPHY EXAM DATE: 03/22/2019 02:31 PM. CLINICAL HISTORY: NECK PAIN. COMPARISONS: CERVICAL SPINE 2 VIEW 11/17/2016 3:37 PM CERVICAL SPINE W/O 11/10/2017 10:07 AM NECK SOFT TISSUE W/O 12/12/2016 9:54 AM. TECHNIQUE: 3 views. FINDINGS: Status post posterior instrumented fusion C2-T1 and anterior fusion C4-C6. Chronic right T1 pedicle screw fracture. Difficult to say if there has been an interval change in screw/kelvin position compared with priors. The hardware otherwise appears intact. The vertebral bodies appear normally aligned. There is partial compression of C7 and T4. No prevertebral soft tissue swelling. Status post sternotomy and CABG. IMPRESSION: Status post C2-T1 fusion with chronic fracture right T1 pedicle screw. Status post anterior C4-C6 fusion. Chronic C7 and T4 compression deformity. If symptoms persist further evaluation by noncontrast CT scan of the cervical and upper thoracic spine may be useful. [facility]
== END 2019-03-22 23:59 | disposition home or self-care (01) ==
LOC: DI.WCP 14:11
PROVIDERS: ATTEND Nurse Practitioner Family
DX: T84.216A Breakdown (mechanical) of internal fixation device of vertebrae, initial encounter (principal); M43.8X2 Other specified deforming dorsopathies, cervical region; M43.8X4 Other specified deforming dorsopathies, thoracic region
CPT/HCPCS: 72040

== ENCOUNTER 2019-07-13 08:00 | Outpatient (CLI) | payer MEDICARE, OTHER ==
[2019-07-13 19:02] LABS: CALCIUM 9.2 mg/dL (8.5-10.3); CREATININE 1.2 mg/dL (0.6-1.2)
[2019-07-13 19:17] LABS: MICROALBUM/CREATININE RATIO,UR 31.7 ug/mg (<30.0); MICROALBUMIN,URINE 2.6 mg/dL (0-300.0)
[2019-07-13 19:33] LABS: HB2 TOTAL 13.1 g/dL; HEMOGLOBIN A1C 0.95 g/dL; HEMOGLOBIN A1C % 8.8 % (4.6-6.2)
== END 2019-07-13 23:59 | disposition home or self-care (01) ==
LOC: LAB.WCP 08:00
PROVIDERS: ATTEND Family Medicine
DX: E11.9 Type 2 diabetes mellitus without complications (principal); I77.810 Thoracic aortic ectasia; R19.7 Diarrhea, unspecified; I25.10 Atherosclerotic heart disease of native coronary artery without angina pectoris
CPT/HCPCS: 36415; 80048; 82043; 82570; 83036

== ENCOUNTER 2019-07-26 08:50 | Outpatient (CLI) | payer MEDICARE, OTHER | END 2019-07-26 08:51 | disposition EMS.NT | LOC: EMS 08:50 | PROVIDERS: ATTEND Surgery | DX: R07.89 Other chest pain (principal); V53.5XXA Driver of pick-up truck or van injured in collision with car, pick-up truck or van in traffic accident, initial encounter; Y92.413 State road as the place of occurrence of the external cause ==

== ENCOUNTER 2019-09-13 11:11 | Outpatient (CLI) | payer MEDICARE, OTHER ==
--- NOTE | 2019-09-13 14:48 | XRAY Report ---
Reason: BACK PAIN WITH RADICULOPATHY Procedure Date: 09/13/2019 Accession Number: [id number] / [id number] Procedure: WCP - Lumbar Spine 2 View CPT Code: Final Report FULL RESULT: EXAM: LUMBOSACRAL SPINE RADIOGRAPHY EXAM DATE: 09/13/2019 11:11 AM. CLINICAL HISTORY: BACK PAIN WITH RADICULOPATHY. COMPARISONS: LUMBAR SPINE 2 VIEW 11/10/2017 10:16 AM ABDOMEN/PELVIS W/ 09/26/2018 5:32 PM ABDOMEN 1 VIEW 07/31/2019 12:59 PM. TECHNIQUE: 2 views. FINDINGS: Alignment: No evidence of dislocation. Bones: Bones are osteopenic. There is age-indeterminate fracture of the L2 vertebral body. There is remote T12 anterior wedge compression fracture. Disks/Facets: Disk spacing is maintained. No evidence of significant facet arthrosis. Sacroiliac Joints: Unremarkable. Soft Tissues: The rectum is distended with stool. IMPRESSION: 1. Age-indeterminate L2 superior endplate fracture. 2. No evidence of significant disk space narrowing or facet arthrosis. 3. The rectum is distended with stool. [facility]
== END 2019-09-13 23:59 | disposition home or self-care (01) ==
LOC: DI.WCP 11:11
PROVIDERS: ATTEND Family Medicine
DX: M48.54XA Collapsed vertebra, not elsewhere classified, thoracic region, initial encounter for fracture (principal)
CPT/HCPCS: 72100

== ENCOUNTER 2019-12-05 11:44 | Outpatient (CLI) | payer MEDICARE, OTHER | END 2019-12-05 11:45 | disposition home or self-care (01) | LOC: LAB 11:44 | PROVIDERS: ATTEND Ophthalmology | DX: Z01.812 Encounter for preprocedural laboratory examination (principal); H25.811 Combined forms of age-related cataract, right eye; Z11.59 Encounter for screening for other viral diseases | CPT/HCPCS: 81599 ==

== ENCOUNTER 2019-12-07 06:16 | Day surgery (SDC) | payer MEDICARE, OTHER ==
[2019-12-07] MEDS ORDERED: KETOROLAC 0.45% OPHTH DROPS ONE (06:18)
[2019-12-07] MEDS ORDERED: CYCLOPENTOLATE 1% OPHTH DROPS 2 ML ONE (06:18)
[2019-12-07] MEDS ORDERED: PROPARACAINE 0.5% OPHTH DROPS 15 ML ONE (06:18)
[2019-12-07] MEDS ORDERED: PHENYLEPHRINE 2.5% OPHTH 2 ML DROPS ONE (06:18)
[2019-12-07] MEDS ORDERED: LACTATED RINGERS 500 ML IV ONE (06:19)
[2019-12-07] MEDS ORDERED: timoloL maleate 0.5% OPHTH DROPS (10ML) ONE (06:28)
[2019-12-07] MEDS ORDERED: BRIMONIDINE 0.2% OPHTH DROPS 5 ML ONE (06:28)
[2019-12-07] MEDS ORDERED: TRIAMCIN/MOXIFLOX OPHTHALMIC 0.6 ML VIAL IO ONE (06:28)
[2019-12-07] MEDS ORDERED: BSS/LIDOCAINE/EPINEPHRINE 1 ML SYRINGE ONE (06:29)
[2019-12-07] MEDS ORDERED: VANCOMYCIN OPHTHALMI 8MG/0.8ML 8 MG/0.8 ML SYRINGE IO ONE ×2 (06:29→07:19)
[2019-12-07] MEDS ORDERED: EPINEPHrine 1 MG/ML AMP ONE (06:56)
[2019-12-07] MEDS ORDERED: CHONDR SULF/HYALURONATE SYRINGE IO ONE (07:17)
[2019-12-07] MEDS ORDERED: BRIMONIDINE 0.2% OPHTH DROPS 5 ML OPTH ONE (07:17)
[2019-12-07] MEDS ORDERED: EPINEPHrine 1 MG/ML AMP IR ONE (07:17)
[2019-12-07] MEDS ORDERED: BSS/LIDOCAINE/EPINEPHRINE 1 ML SYRINGE IO ONE (07:18)
[2019-12-07] MEDS ORDERED: PROPARACAINE 0.5% OPHTH DROPS 15 ML EACHEYE ONE (07:18)
[2019-12-07] MEDS ORDERED: MIDAZOLAM 2 MG/2 ML VIAL IVP ONE (07:31)
[2019-12-07 07:58] VITALS: BP 127/89
--- NOTE | 2019-12-07 07:58 | ANESTHESIA ---
Pre-Anesthesia VS, & Labs - Diagnosis Right Cataract - Procedure R ECCE PHACO with IOL Vital Signs: Temp Pulse Resp BP Pulse Ox 36 C L 84 18 118/86 H 100 12/07/19 07:52 12/07/19 07:52 12/07/19 07:52 12/07/19 07:52 12/07/19 07:52 Height 5 ft 10 in Weight (kg) 78.2 kg Body Mass Index 24.3 - NPO >8 hours - Lab Results Current Lab Results: Laboratory Tests 12/07/19 06:39: POC Whole Bld Glucose 255 H Home Medications and Allergies Clopidogrel Bisulfate [Plavix] 75 mg PO DAILY 09/09/14 Insulin Glargine,Hum.rec.anlog [Lantus] 60 unit SQ DAILY 09/09/14 atenoloL [Atenolol] 25 mg PO BID 09/09/14 metFORMIN [Glucophage] 850 mg PO TID 09/09/14 Colchicine 0.6 mg PO DAILY 09/12/14 Fluoxetine HCl 20 mg PO DAILY 09/12/14 Gabapentin mg PO TID 09/12/14 Isosorbide Mononitrate ER [Imdur] 30 mg PO DAILY 09/12/14 Prazosin HCl 6 mg PO DAILY 09/12/14 Propranolol HCl 20 mg PO TID 09/12/14 buPROPion HCL [Bupropion HCl] 150 mg PO BID 09/12/14 Dipyridamole [Persantine] 50 mg PO BID 10/14/14 Doxepin [SINEquan] 10 mg PO QPM 10/14/14 Morphine Sulfate [Ms Contin] 30 mg PO DAILY PM 10/14/14 Nitroglycerin 0.4 mg SL ONCE 10/14/14 Pregabalin [Lyrica] 100 mg PO TID 10/14/14 Glipizide 10 mg PO BID 11/17/16 Saxagliptin HCl/Metformin HCl [Kombiglyze Xr 2.5-1,000 mg Tab] 1 tab PO DAILY 11/17/16 gemfibroziL [Gemfibrozil] 600 mg PO BID 11/17/16 Oxycodone HCl 5 mg PO BID 06/08/17 Allergies/Adverse Reactions: Allergies Allergy/AdvReac Type Severity Reaction Status Date / Time aspirin Allergy Rash Verified 11/30/16 20:24 peanut Allergy Edema Verified 11/30/16 20:24 Anes History & Medical History - Anesthetic History Anesthesia Complications: reports: No previous complications Family history of Anesthesia Complications: Denies Family history of Malignant Hyperthermia: Denies - Medical History Cardiovascular: reports: High cholesterol, Atrial fibrillation, [place], Coronary artery disease, Hypertension Gastrointestinal: reports: Colon polyps Musculoskeletal: reports: Gout, Chronic back pain Endocrine/Autoimmune: reports: Type 2 diabetes Smoking Status: Never smoker - Surgical History General: Colonoscopy, Other Cardiothoracic: Coronary stent Orthopedic: Arthroscopic surgery, Spine surgery Exam General: Alert, Oriented x3, Cooperative Dental: WNL Mouth Openin Fingerbreadth Neck Mobility: Reduced Mallampati classification: II Respiratory: Lungs clear Cardiovascular: Regular rate Plan Anesthesia Type: MAC Consent for Procedure(s) Verified and Reviewed: Yes Code Status: Attempt Resuscitation ASA classification: 3-Severe systemic disease Is this case an emergency?: No
--- NOTE | 2019-12-07 10:01 | PROCEDURE REPORT ---
DATE OF SERVICE: 12/07/2019 Physician: Kerwin Pringle MD PREOPERATIVE DIAGNOSIS: Visually significant cataract, right eye. This was his first cataract surgery. POSTOPERATIVE DIAGNOSIS: Visually significant cataract, right eye. This was his first cataract surgery. PROCEDURE: Phacoemulsification with posterior chamber intraocular lens implant, right eye. SURGEON: Kerwin Pringle MD ANESTHESIA: Monitored anesthesia care. COMPLICATIONS: None. OPERATIVE INDICATIONS: This is a 74-year-old man with progressive vision loss in the right eye due to 3+ nuclear sclerotic, 1+ posterior subcapsular, and vacuolar cataract. Best corrected visual acuity was 20/50 with glare to 20/250 in the left eye. Indications for surgery are overall decrease in vision, difficulty seeing words on a computer screen, difficulty reading, difficulty seeing words, closed caption or game scores on TV and difficulty driving in low light or at night. He was consented at length concerning risks and benefits of cataract surgery, after which he expressed a desire to proceed with surgery. OPERATIVE PROCEDURE: The patient was taken to OR #3 and placed under monitored anesthesia care and surgical timeout was conducted confirming correct patient, correct procedure, and correct surgical site. He was given topical anesthesia then prepped and draped in the usual sterile fashion. The eye was entered at the 9 and 12 o'clock positions. Intracameral Shugarcaine was injected into the anterior chamber, followed by Viscoat. A continuous-tear curvilinear capsulorrhexis was performed. The nucleus was hydrodissected and phacoemulsified. The cortex was evacuated using automated infusion and aspiration. Provisc was injected in the capsular bag, and a 19.0 diopter intraocular lens was inserted into the bag. Infusion and aspiration was used to evacuate the viscoelastic materials. The eye was inflated to physiologic pressure using balanced salt solution and found to be watertight. Approximately 0.25 mL of a mixture of triamcinolone and moxifloxacin was injected trans sclerally into the vitreous and inferotemporal quadrant. An additional 0.55 mL of a mixture of triamcinolone, moxifloxacin and vancomycin was injected subconjunctivally in the superior quadrant for infection and inflammation prophylaxis. Wound integrity was checked with Weck-Kavita sponges. The patient was taken from the Operating Room in good condition and given postoperative instructions. TD: 12/07/2019 08:03 PREMA
== END 2019-12-07 06:17 | disposition home or self-care (01) ==
LOC: SDS 06:16
PROVIDERS: ATTEND Ophthalmology
DX: E11.36 Type 2 diabetes mellitus with diabetic cataract (principal); H25.811 Combined forms of age-related cataract, right eye; Z79.84 Long term (current) use of oral hypoglycemic drugs; I10 Essential (primary) hypertension; Z87.891 Personal history of nicotine dependence; I48.91 Unspecified atrial fibrillation; I25.2 Old myocardial infarction
CPT/HCPCS: 66984; A9270; J3490; V2632

== ENCOUNTER 2019-12-29 14:41 | Outpatient (CLI) | payer MEDICARE, OTHER | END 2019-12-29 14:42 | disposition home or self-care (01) | LOC: COV 14:41 | PROVIDERS: ATTEND Ophthalmology | DX: Z01.812 Encounter for preprocedural laboratory examination (principal); H25.812 Combined forms of age-related cataract, left eye; Z11.59 Encounter for screening for other viral diseases ==

== ENCOUNTER 2020-01-04 08:03 | Day surgery (SDC) | payer MEDICARE, OTHER ==
[~2020-01-04 08:03] MED LIST: CYCLOPENTOLATE 1% OPHTH DROPS 2 ML ONE; KETOROLAC 0.45% OPHTH DROPS ONE; PHENYLEPHRINE 2.5% OPHTH 2 ML DROPS ONE; PROPARACAINE 0.5% OPHTH DROPS 15 ML ONE
[2020-01-04] MEDS ORDERED: MIDAZOLAM 2 MG/2 ML VIAL IVP ONE (08:04)
[2020-01-04] MEDS ORDERED: LACTATED RINGERS 500 ML IV ONE (08:16)
--- NOTE | 2020-01-04 09:07 | ANESTHESIA ---
Pre-Anesthesia VS, & Labs - Diagnosis left eye senile combined cataract - Procedure left eye cataract extraction with IOL Vital Signs: Temp Pulse Resp BP Pulse Ox 36.3 C L 87 18 124/90 H 100 01/04/20 08:30 01/04/20 08:30 01/04/20 08:30 01/04/20 08:30 01/04/20 08:30 Height 5 ft 10 in Weight (kg) 77.6 kg Body Mass Index 24.3 - NPO >8 hours - Lab Results Current Lab Results: Laboratory Tests 01/04/20 08:33: POC Whole Bld Glucose 255 H Home Medications and Allergies Clopidogrel Bisulfate [Plavix] 75 mg PO DAILY 09/09/14 Insulin Glargine,Hum.rec.anlog [Lantus] 60 unit SQ DAILY 09/09/14 atenoloL [Atenolol] 25 mg PO BID 09/09/14 metFORMIN [Glucophage] 850 mg PO TID 09/09/14 Colchicine 0.6 mg PO DAILY 09/12/14 Fluoxetine HCl 20 mg PO DAILY 09/12/14 Gabapentin mg PO TID 09/12/14 Isosorbide Mononitrate ER [Imdur] 30 mg PO DAILY 09/12/14 Prazosin HCl 6 mg PO DAILY 09/12/14 Propranolol HCl 20 mg PO TID 09/12/14 buPROPion HCL [Bupropion HCl] 150 mg PO BID 09/12/14 Dipyridamole [Persantine] 50 mg PO BID 10/14/14 Doxepin [SINEquan] 10 mg PO QPM 10/14/14 Morphine Sulfate [Ms Contin] 30 mg PO DAILY PM 10/14/14 Nitroglycerin 0.4 mg SL ONCE 10/14/14 Pregabalin [Lyrica] 100 mg PO TID 10/14/14 Glipizide 10 mg PO BID 11/17/16 Saxagliptin HCl/Metformin HCl [Kombiglyze Xr 2.5-1,000 mg Tab] 1 tab PO DAILY 11/17/16 gemfibroziL [Gemfibrozil] 600 mg PO BID 11/17/16 Allergies/Adverse Reactions: Allergies Allergy/AdvReac Type Severity Reaction Status Date / Time aspirin Allergy Rash Verified 01/04/20 08:22 peanut Allergy Edema Verified 01/04/20 08:22 Anes History & Medical History - Anesthetic History Anesthesia Complications: reports: No previous complications - Medical History Cardiovascular: reports: High cholesterol, Atrial fibrillation, [place], Coronary artery disease, Hypertension Pulmonary: reports: None Gastrointestinal: reports: Diverticulitis, Colon polyps Urinary: reports: None Neuro: reports: None Musculoskeletal: reports: Gout, Chronic back pain Endocrine/Autoimmune: reports: Type 2 diabetes Skin: reports: None Smoking Status: Never smoker Psychosocial: reports: No issues indicated - Surgical History General: Colonoscopy, Other Cardiothoracic: CABG, Coronary stent Orthopedic: Spine surgery Exam General: Alert, Oriented x3, Cooperative, No acute distress Mouth Openin Fingerbreadth Neck Mobility: Reduced Mallampati classification: III Mental/Cognitive Status: Alert/Oriented X3, Normal for patient Plan Anesthesia Type: MAC Consent for Procedure(s) Verified and Reviewed: Yes Code Status: Attempt Resuscitation ASA classification: 3-Severe systemic disease Is this case an emergency?: No
[2020-01-04] MEDS ORDERED: TRIAMCIN/MOXIFLOX OPHTHALMIC 0.6 ML VIAL IO ONE ×2 (09:46→10:10)
[2020-01-04] MEDS ORDERED: EPINEPHrine 1 MG/ML AMP ONE (09:46)
[2020-01-04] MEDS ORDERED: TIMOLOL 0.5% OPHTH DROPS ONE (09:46)
[2020-01-04] MEDS ORDERED: BRIMONIDINE 0.2% OPHTH DROPS 5 ML ONE (09:46)
[2020-01-04] MEDS ORDERED: VANCOMYCIN OPHTHALMI 8MG/0.8ML 8 MG/0.8 ML SYRINGE IO ONE (10:10)
[2020-01-04] MEDS ORDERED: BRIMONIDINE 0.2% OPHTH DROPS 5 ML OPTH ONE (10:10)
[2020-01-04] MEDS ORDERED: TIMOLOL 0.5% OPHTH DROPS OPTH ONE (10:10)
[2020-01-04] MEDS ORDERED: BSS/LIDOCAINE/EPINEPHRINE 1 ML SYRINGE IO ONE (10:10)
[2020-01-04] MEDS ORDERED: CHONDR SULF/HYALURONATE SYRINGE IO ONE (10:10)
[2020-01-04] MEDS ORDERED: PROPARACAINE 0.5% OPHTH DROPS 15 ML EACHEYE ONE (10:10)
[2020-01-04] MEDS ORDERED: EPINEPHrine 1 MG/ML AMP IR ONE (10:10)
[2020-01-04] MEDS ORDERED: LACTATED RINGERS 1,000 ML IV ONE (10:23)
[2020-01-04 10:50] VITALS: BP 138/78
--- NOTE | 2020-01-04 11:04 | ANESTHESIA POST OP EVALUATION ---
Anesthesia Post Eval - Post Anesthesia Eval Vitals: Last Vital Signs Temp 36.8 C 01/04/20 10:49 Pulse 68 01/04/20 10:49 Resp 16 01/04/20 10:49 BP 138/78 H 01/04/20 10:49 Pulse Ox 98 01/04/20 10:49 CV Function Including HR & BP: positive: Stable Pain Control: positive: Satisfactory Nausea & Vomiting: positive: Negative Mental Status: positive: Baseline Respiratory Status: Airway Patent Hydration Status: Satisfactory Anesthesia Complications: positive: None
--- NOTE | 2020-01-04 12:26 | OPERATIVE REPORT ---
DATE OF SERVICE: 01/04/2020 Physician: Kerwin Pringle MD PREOPERATIVE DIAGNOSIS: Visually significant cataract, left eye. Cataract surgery was performed on the right eye on 12/07/2019. POSTOPERATIVE DIAGNOSIS: Visually significant cataract, left eye. Cataract surgery was performed on the right eye on 12/07/2019. PROCEDURE: Phacoemulsification with posterior chamber intraocular lens implant, left eye. SURGEON: Kerwin Pringle MD ANESTHESIA: Monitored anesthesia care. COMPLICATIONS: None. OPERATIVE INDICATIONS: This is a 74-year-old man with progressive vision loss in the left eye due to 4+ nuclear sclerotic, 1+ posterior subcapsular and vacuole cataract. Best corrected visual acuity w as 20/50, with glare to 20/200 in the left eye. Indications for surgery are overall decrease in visi on, difficulty seeing words on a computer screen, difficulty reading, difficulty seeing words, closed caption or game scores on TV, difficulty driving in low light or at night, difficulty driving at nig ht because of headlights from other vehicles, and difficulty with glare or bright lights in any situa tion. He was consented at length concerning risks and benefits of cataract surgery, after which he e xpressed a desire to proceed with surgery. OPERATIVE PROCEDURE: Patient was taken to OR #3 and placed under monitored anesthesia care. A surgi claire timeout was conducted confirming correct patient, correct procedure, and correct surgical site. He was given topical anesthesia, and prepped and draped in the usual sterile fashion. The eye was en tered at the 6 and 3 o'clock positions. Intracameral Shugarcaine was injected into the anterior lalitha nyla, followed by Viscoat. A continuous-tear curvilinear capsulorrhexis was performed. Nucleus was h ydrodissected and phacoemulsified. The cortex was evacuated using automated infusion and aspiration. Provisc was injected in the capsular bag, and a 20.0 diopter intraocular lens was inserted into the bag. Infusion and aspiration was used to evacuate the viscoelastic materials. The eye was inflated to physiologic pressure using balanced salt solution and found to be watertight. Approximately 0.25 mL of a mixture of triamcinolone and moxifloxacin was injected transsclerally into the vitreous in t he inferotemporal quadrant. An additional 0.55 mL of a mixture of triamcinolone, moxifloxacin and va ncomycin was injected subconjunctivally in the superior quadrant for infection and inflammation proph ylaxis. Wound integrity was checked with Weck-Kavita sponges. Patient was taken from the operating marcos m in good condition and given postoperative instructions. TD: 01/04/2020 10:32
== END 2020-01-04 08:04 | disposition home or self-care (01) ==
LOC: SDS 08:03
PROVIDERS: ATTEND Ophthalmology
DX: E11.36 Type 2 diabetes mellitus with diabetic cataract (principal); H25.812 Combined forms of age-related cataract, left eye; Z79.84 Long term (current) use of oral hypoglycemic drugs; I10 Essential (primary) hypertension; Z98.41 Cataract extraction status, right eye; Z87.891 Personal history of nicotine dependence; I25.2 Old myocardial infarction; I25.10 Atherosclerotic heart disease of native coronary artery without angina pectoris; I48.91 Unspecified atrial fibrillation
CPT/HCPCS: 66984; A9270; J3490; J7120; V2632

== ENCOUNTER 2020-09-25 12:32 | Outpatient (CLI) | payer MEDICARE, OTHER ==
--- NOTE | 2020-09-25 14:11 | MRI Report ---
PROCEDURE: Lumbar Spine W/O INDICATIONS: LUMBAR RADICULOPATHY TECHNIQUE: Noncontrast sagittal T1 spin echo and T2 fast echo, sagittal STIR, axial T1 and T2 fast spin echo thr ough the lumbar spine. In cases with scoliosis, additional coronal T2 fast spin echo may be performe d. COMPARISON: Correlation is made with lumbar plain films, 09/13/2019. Correlation is also made with pr ior abdomen pelvis CT 09/26/2018. FINDINGS: Image quality: Excellent. Alignment and Curvature: There is normal bony alignment. Bone Marrow: Marrow is of normal overall signal. There is a stable T12 anterior wedge deformity, wi th approximately 50% loss of height anteriorly. This is similar to the 2018 T2 examination. A minimal anterior wedge deformity is seen of L1, with approximately 10% loss of height anterior. The re is also an L2 superior endplate compression deformity, with approximately 40% loss of height centr ally. At L3 central compression deformity is seen, with 20-30% loss of height centrally, within an as sociated Schmorl's node. These L1 through L3 compression of arteries demonstrate no abnormal STIR sig nal to suggest acute fractures. However, they are new compared to the 2018 CT examination. Spinal Cord: Conus medullaris terminates at the L1 level. Visualized cord demonstrates normal signa l and size. Paraspinous Soft Tissues: No paravertebral masses. T12-L1: The disc height is well-preserved. There is loss of disc signal seen. Mild disc bulge is see n, which is eccentric to the right. There is mild right-sided and no significant left-sided neurofora rishi narrowing seen. No significant central canal narrowing is seen. L1-L2: The disc height is well-preserved. There is loss of disc signal seen. Mild to moderate disc bulge is seen, which is eccentric to the right. Mild facet hypertrophy is seen. There is at least moderate bilateral neuroforaminal narrowing seen, right worse than left. A degree of compression can be seen upon the exiting nerve roots, right worse than left. At least moderate central canal narrowin g is seen, as on series 701 image 32. L2-L3: The disc height is well-preserved. There is loss of disc signal seen. Mild to moderate disc bulge is seen. Moderate facet hypertrophy is seen. There is moderate to severe bilateral neurofora rishi narrowing seen, left worse than right. Compression is seen upon the exiting nerve roots. At le ast moderate central canal narrowing can be seen. L3-L4: The disc height is well-preserved. There is loss of disc signal seen. Moderate disc bulge i s seen at this level. At least moderate facet hypertrophy is seen. Associated hypertrophy of the li gamentum flavum can be seen. There is moderate to severe left-sided and at least moderate right-side d neuroforaminal narrowing seen. Compression is seen upon the exiting nerve roots. Moderate central canal narrowing is seen. L4-L5: The disc height is well-preserved. There is loss of disc signal seen. At least moderate disc bulge is seen, which is slightly eccentric to the right. There is a central disc protrusion. At leas t moderate facet hypertrophy is seen, right worse than left. There is moderate to severe bilateral ne ural narrowing seen, right worse than left. Compression is seen upon the exiting nerve roots. Modera te to severe central canal narrowing is seen, as on series 701 image 13. L5-S1: The disc height is well-preserved. There is loss of disc signal seen. Mild disc bulge is se en. Moderate to prominent facet hypertrophy is seen. There is severe left-sided and moderate to ada re right-sided neuroforaminal narrowing seen. Compression is seen upon the exiting nerve roots. Mil d to moderate central canal narrowing is seen at this level. IMPRESSION: Multiple levels of relatively prominent lumbar spine degenerative change are seen, inclu ding several sites of significant neuroforaminal narrowing, with associated exiting nerve root compre ssion. Multiple compression deformities are seen, yet without acute features seen. These are worst at the T1 2 level, with approximately 50% loss of height anteriorly. Reviewed by: Nathan Caceres MD on 09/25/2020 1:10 PM [facility] Approved by: Nathan Caceres MD on 09/25/2020 1:10 PM [facility] Station ID: [id number]
== END 2020-09-25 12:33 | disposition home or self-care (01) ==
LOC: DI 12:32
PROVIDERS: ATTEND Family Medicine
DX: M47.816 Spondylosis without myelopathy or radiculopathy, lumbar region (principal); M48.061 Spinal stenosis, lumbar region without neurogenic claudication; M51.26 Other intervertebral disc displacement, lumbar region

== ENCOUNTER 2020-11-20 08:00 | Outpatient (CLI) | payer MEDICARE, OTHER ==
[2020-11-20 18:23] LABS: BASOPHILS % (AUTO) 0.2 %; EOSINOPHILS % (AUTO) 0.2 %; HCT - HEMATOCRIT 42.1 % (42.0-52.0); LYMPHOCYTES % (AUTO) 11.5 %; MEAN CORPUSCULAR HGB CONC 30.9 g/dL (32.0-36.0); MEAN CORPUSCULAR VOLUME 93.8 fL (80.0-94.0); MEAN PLATELET VOLUME 10.9 fL (7.4-11.4); MONOCYTES # (AUTO) 0.3 10^3/uL (0.0-1.0); MONOCYTES % (AUTO) 3.7 %; NEUTROPHILS % (AUTO) 83.8 %; PLT - PLATELET COUNT 197 10^3/uL (130-450); RED BLOOD COUNT 4.49 10^6/uL (4.70-6.10); RED CELL DISTRIBUTION WIDTH 14.3 % (12.0-15.0); WHITE BLOOD COUNT 8.4 x10^3/uL (4.8-10.8)
[2020-11-20 18:46] LABS: ALBUMIN 4.2 g/dL (3.2-5.5); ALBUMIN/GLOBULIN RATIO 1.4 (1.0-2.2); ALKALINE PHOSPHATASE 73 IU/L (42-121); ALT ALANINE AMINOTRANSFERASE 17 IU/L (10-60); AST ASPARTATE AMINOTRANSFERASE 17 IU/L (10-42); BILIRUBIN,TOTAL 0.7 mg/dL (0.2-1.0); BUN - BLOOD UREA NITROGEN 21 mg/dL (6-20); CARBON DIOXIDE - CO2 32 mmol/L (21-32); CHLORIDE 92 mmol/L (101-111); CHOL/HDL RATIO 3.6 (<5.0); CHOLESTEROL 141 mg/dL; GFR - MDRD 73 (>89); GLUCOSE 383 mg/dL (70-100); HDL CHOLESTEROL 39 mg/dL; LDL CHOLESTEROL,CALCULATED 77 mg/dL; POTASSIUM 4.7 mmol/L (3.5-5.0); SODIUM 134 mmol/L (135-145); TOTAL PROTEIN 7.3 g/dL (6.7-8.2); TRIGLYCERIDES 126 mg/dL; VLDL CHOLESTEROL 25 mg/dL
[2020-11-20 19:03] LABS: THYROID STIMULATING HORMONE 0.81 uIU/mL (0.34-5.60)
[2020-11-20 19:05] LABS: FREE T3 2.97 pg/mL (2.5-3.9); FREE T4 (FREE THYROXINE) 0.93 ng/dL (0.58-1.64)
[2020-11-20 21:26] LABS: ESTIMATED AVERAGE GLUCOSE 266 mg/dL (70-100); HEMOGLOBIN A1c% 10.9 % (4.27-6.07)
== END 2020-11-20 23:59 | disposition home or self-care (01) ==
LOC: LAB.WCP 08:00
PROVIDERS: ATTEND Family Medicine
DX: M54.2 Cervicalgia (principal); R00.0 Tachycardia, unspecified; E11.9 Type 2 diabetes mellitus without complications; I25.10 Atherosclerotic heart disease of native coronary artery without angina pectoris; I67.1 Cerebral aneurysm, nonruptured; R10.9 Unspecified abdominal pain; Z95.1 Presence of aortocoronary bypass graft
CPT/HCPCS: 36415; 80053; 80061; 83036; 83721; 84439; 84443; 84481; 85025

== ENCOUNTER 2021-03-17 11:34 | Outpatient (CLI) | payer MEDICARE, OTHER ==
[2021-03-17 18:37] LABS: CALCIUM 8.9 mg/dL (8.5-10.3); CREATININE 1.2 mg/dL (0.6-1.2); POTASSIUM 4.6 mmol/L (3.5-5.0)
[2021-03-17 18:53] LABS: CREATININE,URINE 146.3 mg/dL; MICROALBUM/CREATININE RATIO,UR 9.6 ug/mg (<30.0); MICROALBUMIN,URINE 1.4 mg/dL (0-300.0)
[2021-03-17 20:19] LABS: ESTIMATED AVERAGE GLUCOSE 180 mg/dL (70-100); HEMOGLOBIN A1c% 7.9 % (4.27-6.07)
== END 2021-03-17 23:59 | disposition home or self-care (01) ==
LOC: LAB.WCP 11:34
PROVIDERS: ATTEND Family Medicine
DX: E11.9 Type 2 diabetes mellitus without complications (principal)
CPT/HCPCS: 36415; 80048; 82043; 82570; 83036

== ENCOUNTER 2022-07-09 11:27 | Outpatient (CLI) | payer MEDICARE, OTHER ==
[2022-07-09 17:34] LABS: BASOPHILS % (AUTO) 0.6 %; EOSINOPHILS # (AUTO) 0.4 10^3/uL (0.0-0.7); EOSINOPHILS % (AUTO) 6.4 %; HCT - HEMATOCRIT 41.5 % (42.0-52.0); HGB - HEMOGLOBIN 12.4 g/dL (14.0-18.0); LYMPHOCYTES # (AUTO) 1.5 10^3/uL (1.5-3.5); LYMPHOCYTES % (AUTO) 22.2 %; MEAN CORPUSCULAR HEMOGLOBIN 27.7 pg (27.0-31.0); MEAN CORPUSCULAR HGB CONC 29.9 g/dL (32.0-36.0); MEAN CORPUSCULAR VOLUME 92.8 fL (80.0-94.0); MEAN PLATELET VOLUME 11.2 fL (7.4-11.4); MONOCYTES # (AUTO) 0.4 10^3/uL (0.0-1.0); MONOCYTES % (AUTO) 6.3 %; NEUTROPHILS # (AUTO) 4.2 10^3/uL (1.5-6.6); NEUTROPHILS % (AUTO) 64.3 %; PLT - PLATELET COUNT 201 10^3/uL (130-450); RED BLOOD COUNT 4.47 10^6/uL (4.70-6.10); RED CELL DISTRIBUTION WIDTH 14.1 % (12.0-15.0); WHITE BLOOD COUNT 6.5 x10^3/uL (4.8-10.8)
[2022-07-09 17:58] LABS: ALBUMIN 3.8 g/dL (3.2-5.5); ALBUMIN/GLOBULIN RATIO 1.2 (1.0-2.2); ALKALINE PHOSPHATASE 124 IU/L (42-121); ALT ALANINE AMINOTRANSFERASE 20 IU/L (10-60); AST ASPARTATE AMINOTRANSFERASE 21 IU/L (10-42); BILIRUBIN,TOTAL 0.9 mg/dL (0.2-1.0); BUN - BLOOD UREA NITROGEN 22 mg/dL (6-20); CALCIUM 9.3 mg/dL (8.5-10.3); CARBON DIOXIDE - CO2 30 mmol/L (21-32); CHLORIDE 98 mmol/L (101-111); CHOL/HDL RATIO 4.1 (<5.0); CHOLESTEROL 106 mg/dL; CREATININE 1.1 mg/dL (0.6-1.2); GFR - MDRD 65 (>89); GLUCOSE 261 mg/dL (70-100); HDL CHOLESTEROL 26 mg/dL; LDL CHOLESTEROL,CALCULATED 58 mg/dL; LDL/HDL RATIO 2.2 (<3.6); POTASSIUM 4.3 mmol/L (3.5-5.0); SODIUM 137 mmol/L (135-145); TOTAL PROTEIN 7.1 g/dL (6.7-8.2); TRIGLYCERIDES 109 mg/dL; VLDL CHOLESTEROL 22 mg/dL
[2022-07-09 18:06] LABS: THYROID STIMULATING HORMONE 2.31 uIU/mL (0.34-5.60)
[2022-07-09 20:36] LABS: ESTIMATED AVERAGE GLUCOSE 194 mg/dL (70-100); HEMOGLOBIN A1c% 8.4 % (4.27-6.07)
== END 2022-07-09 11:28 | disposition home or self-care (01) ==
LOC: LAB.N 11:27
PROVIDERS: ATTEND Family Medicine
DX: S72.001D Fracture of unspecified part of neck of right femur, subsequent encounter for closed fracture with routine healing (principal); K21.9 Gastro-esophageal reflux disease without esophagitis; E11.65 Type 2 diabetes mellitus with hyperglycemia; Z79.4 Long term (current) use of insulin; M54.16 Radiculopathy, lumbar region; Z95.1 Presence of aortocoronary bypass graft; I25.10 Atherosclerotic heart disease of native coronary artery without angina pectoris
CPT/HCPCS: 36415; 80053; 80061; 83036; 83721; 84443; 85025

== ENCOUNTER 2023-02-02 12:26 | Outpatient (CLI) | payer MEDICARE, OTHER ==
[2023-02-02 17:58] LABS: BASOPHILS % (AUTO) 0.5 %; EOSINOPHILS # (AUTO) 0.3 10^3/uL (0.0-0.7); EOSINOPHILS % (AUTO) 5.4 %; HCT - HEMATOCRIT 43.5 % (42.0-52.0); HGB - HEMOGLOBIN 13.1 g/dL (14.0-18.0); LYMPHOCYTES # (AUTO) 1.2 10^3/uL (1.5-3.5); LYMPHOCYTES % (AUTO) 19.6 %; MEAN CORPUSCULAR HEMOGLOBIN 27.5 pg (27.0-31.0); MEAN CORPUSCULAR HGB CONC 30.1 g/dL (32.0-36.0); MEAN CORPUSCULAR VOLUME 91.4 fL (80.0-94.0); MEAN PLATELET VOLUME 10.9 fL (7.4-11.4); MONOCYTES # (AUTO) 0.5 10^3/uL (0.0-1.0); MONOCYTES % (AUTO) 7.8 %; NEUTROPHILS # (AUTO) 4.2 10^3/uL (1.5-6.6); NEUTROPHILS % (AUTO) 66.5 %; PLT - PLATELET COUNT 201 10^3/uL (130-450); RED BLOOD COUNT 4.76 10^6/uL (4.70-6.10); RED CELL DISTRIBUTION WIDTH 14.6 % (12.0-15.0); WHITE BLOOD COUNT 6.3 x10^3/uL (4.8-10.8)
[2023-02-02 18:18] LABS: ALBUMIN 4.2 g/dL (3.2-5.5); ALBUMIN/GLOBULIN RATIO 1.5 (1.0-2.2); ALKALINE PHOSPHATASE 120 IU/L (42-121); ALT ALANINE AMINOTRANSFERASE 24 IU/L (10-60); AST ASPARTATE AMINOTRANSFERASE 21 IU/L (10-42); BILIRUBIN,TOTAL 0.8 mg/dL (0.2-1.0); BUN - BLOOD UREA NITROGEN 25 mg/dL (6-20); CALCIUM 9.5 mg/dL (8.5-10.3); CARBON DIOXIDE - CO2 31 mmol/L (21-32); CHLORIDE 103 mmol/L (101-111); CHOL/HDL RATIO 3.8 (<5.0); CHOLESTEROL 106 mg/dL; CREATININE 1.3 mg/dL (0.6-1.3); GFR - MDRD 54 (>89); GLUCOSE 170 mg/dL (74-104); HDL CHOLESTEROL 28 mg/dL; POTASSIUM 4.5 mmol/L (3.5-4.5); SODIUM 138 mmol/L (135-145)
[2023-02-02 18:21] LABS: CREATININE,URINE 65.4 mg/dL; MICROALBUM/CREATININE RATIO,UR 32.1 ug/mg (<30.0); MICROALBUMIN,URINE 2.1 mg/dL
[2023-02-02 18:25] LABS: THYROID STIMULATING HORMONE 1.57 uIU/mL (0.34-5.60)
[2023-02-02 18:57] LABS: LDL CHOLESTEROL,CALCULATED 37 mg/dL; LDL/HDL RATIO 1.3 (<3.6); TRIGLYCERIDES 204 mg/dL (48-352); VLDL CHOLESTEROL 41 mg/dL
[2023-02-02 20:31] LABS: ESTIMATED AVERAGE GLUCOSE 200 mg/dL (70-100); HEMOGLOBIN A1c% 8.6 % (4.27-6.07)
== END 2023-02-02 12:27 | disposition home or self-care (01) ==
LOC: LAB.N 12:26
PROVIDERS: ATTEND Family Medicine
DX: E11.9 Type 2 diabetes mellitus without complications (principal); I25.10 Atherosclerotic heart disease of native coronary artery without angina pectoris; E78.5 Hyperlipidemia, unspecified; F41.8 Other specified anxiety disorders; M54.16 Radiculopathy, lumbar region; Z95.1 Presence of aortocoronary bypass graft
CPT/HCPCS: 36415; 80053; 80061; 82043; 82570; 83036; 83721; 84443; 85025

== ENCOUNTER 2023-08-11 13:10 | Outpatient (CLI) | payer MEDICARE, OTHER ==
[2023-08-11 18:04] LABS: CALCIUM 9.2 mg/dL (8.5-10.3); CREATININE 1.4 mg/dL (0.6-1.3); POTASSIUM 4.6 mmol/L (3.5-4.5)
[2023-08-11 18:41] LABS: CREATININE,URINE 166.1 mg/dL; MICROALBUM/CREATININE RATIO,UR 30.7 ug/mg (<30.0); MICROALBUMIN,URINE 5.1 mg/dL
[2023-08-11 22:16] LABS: ESTIMATED AVERAGE GLUCOSE 183 mg/dL (70-100)
== END 2023-08-11 13:11 | disposition home or self-care (01) ==
LOC: LAB.N 13:10
PROVIDERS: ATTEND Family Medicine
DX: E11.65 Type 2 diabetes mellitus with hyperglycemia (principal); I25.10 Atherosclerotic heart disease of native coronary artery without angina pectoris; K21.9 Gastro-esophageal reflux disease without esophagitis; I95.9 Hypotension, unspecified; Z79.4 Long term (current) use of insulin
CPT/HCPCS: 36415; 80048; 82043; 82570; 83036